=== PATIENT | female | born 1990 | race Two or more races ===

== ENCOUNTER 2024-05-22 15:24 | Outpatient (CLI) | payer OTHER | END 2024-05-22 15:31 | disposition home or self-care (01) | LOC: PRENATAL 15:24 | PROVIDERS: ATTEND Obstetrics & Gynecology Maternal & Fetal Medicine | DX: O44.00 Complete placenta previa NOS or without hemorrhage, unspecified trimester (principal); Z3A.19 19 weeks gestation of pregnancy ==